=== PATIENT | female | born 1990 | race Caucasian/White ===

== ENCOUNTER 2020-04-18 17:00 | Outpatient (REF) | payer OTHER, SELFPAY ==
[2020-04-18 18:04] LABS: MANUAL DIFF FLAG NO
[2020-04-18 18:07] LABS: Basophils Percent Auto 0.1 % (0-2); Eosinophils Percent Auto 0.4 % (0-4); Hematocrit 40.8 % (37-47); Hemoglobin 12.4 g/dl (12.0-16.0); Imm Gran Abs Auto 0.02 X10*3/uL (0.00-0.03); Imm Gran Pct Auto 0.3 % (0.0-0.4); Lymphocytes Absolute Auto 1.8 X10*3/uL (1.2-4.9); Lymphocytes Percent Auto 26.5 % (20-40); Mean Corpuscular HGB Conc 30.4 g/dl (31.0-35.0); Mean Corpuscular Volume 82.3 fL (80-98); Mean Platelet Volume 9.5 fL (9.4-12.3); Monocytes Absolute Auto 0.4 X10*3/uL (0.1-1.2); Monocytes Percent Auto 6.5 % (2-11); Neutrophils Absolute Auto 4.5 X10*3/uL (2.0-8.3); Neutrophils Percent Auto 66.2 % (45-73); Platelet Count 296 X10*3/uL (160-400); Red Blood Count 4.96 X10*6/uL (4.20-5.50); Red Cell Distribution Width 13.1 % (11.0-16.0); White Blood Count 6.8 X10*3/uL (4.8-10.8)
[2020-04-18 18:35] LABS: Alanine Aminotransferase 15 U/L (0-31); Albumin Level 4.6 g/dL (3.5-5.0); Alkaline Phosphatase 77 U/L (39-117); Anion Gap 10 (12-20); Aspartate Amino Transferase 16 U/L (5-31); Bilirubin Total 0.3 mg/dL (0.0-1.0); Blood Urea Nitrogen 11 mg/dL (9-16); Calcium 8.8 mg/dL (8.4-10.2); Carbon Dioxide 26 mmol/L (22-29); Chloride 105 mmol/L (96-108); Cholesterol 175 mg/dL; Estimated Glomerular Filt Rate > 60; Glucose Random 84 mg/dL (60-115); Potassium 4.1 mmol/l (3.3-5.1); Sodium 137 mmol/L (135-145); Total Protein 7.8 g/dL (6.5-8.0)
[2020-04-18 18:56] LABS: Vitamin B12 446 pg/mL (200-900)
[2020-04-18 18:59] LABS: Free T4 (Free Thyroxine) 0.91 ng/dL (0.71-1.85); Thyroid Stimulating Hormone 0.67 uIU/mL (0.32-4.0); Vitamin D 25-OH Total 11.4 ng/mL (>30)
== END 2020-04-18 17:01 | disposition home or self-care (01) ==
LOC: HO.LAB 17:00
PROVIDERS: PCP Internal Medicine; Visit Provider Internal Medicine
DX: R53.83 Other fatigue (principal); J45.909 Unspecified asthma, uncomplicated; R63.5 Abnormal weight gain
CPT/HCPCS: 36415; 80053; 82306; 82465; 82607; 84439; 84443; 85025

== ENCOUNTER → 2020-05-11 16:03 | Outpatient (BNVA) | payer OTHER, SELFPAY | PROVIDERS: Visit Provider Obstetrics & Gynecology | DX: Z76.89 Persons encountering health services in other specified circumstances (principal) ==

== ENCOUNTER → 2022-10-20 11:13 | Outpatient (BNVA) | payer OTHER, SELFPAY | PROVIDERS: Visit Provider Advanced Practice Midwife | DX: Z30.431 Encounter for routine checking of intrauterine contraceptive device (principal) | CPT/HCPCS: 99212 ==

== ENCOUNTER 2022-11-12 08:04 | Emergency (ER) | payer OTHER, SELFPAY ==
[2022-11-12 08:28] VITALS: BP 130/87; PULSE 84; RESP 16; TEMP 37.1; O2SAT 96; BMI 37.1
[2022-11-12] MEDS: Ibuprofen 600 MG TABLET PO (08:51)
[2022-11-12] MEDS: dexAMETHasone 2 MG TABLET 10 MG PO (08:51)
--- NOTE | 2022-11-12 09:39 | ED_ITS ---
HPI - General Adult General Chief complaint: Upper Respiratory Symptoms Stated complaint: ? swollen tonsils, chills, fever Time Seen by Provider: 11/12/22 08:06 Source: patient Mode of arrival: ambulatory Limitations: no limitations History of Present Illness HPI narrative: Female with no major medical problems presents with sore throat. Symptoms started 3 days ago. Symptoms are moderate to severe. They are worse with swallowing. She has no fevers but chills. She denies any cough or mucus production. She denies any shortness of breath. She denies any sick contacts. Prior treatment include ampicillin this morning. Related Data Home Medications Medication Instructions Recorded Confirmed copper 380 square mm intrauterine intrauterine 10/20/22 device (ParaGard T 380A) Previous Rx's Medication Instructions Recorded amoxicillin 875 mg tablet 875 mg PO BID #20 tabs 11/12/22 Allergies Allergy/AdvReac Type Severity Reaction Status Date / Time kiwi [KIWI] Allergy Unknown UNKNOWN Verified 10/20/22 11:17 oregano [OREGANO] Allergy Unknown UNKNOWN Verified 10/20/22 11:17 Review of Systems Review of Systems: CONSTITUTIONAL: Denies weight loss, fever and chills. HEENT: Denies changes in vision and hearing. RESPIRATORY: Denies SOB and cough. CV: Denies palpitations no CP. GI: Denies abdominal pain, nausea, vomiting and diarrhea. : Denies dysuria and urinary frequency. MSK: Denies myalgia and joint pain. SKIN: Denies rash and pruritus. NEUROLOGICAL: Denies headache and syncope. PSYCHIATRIC: Denies recent changes in mood. Denies anxiety and depression. All other ROS are negative unless in HPI [facility] Past Medical History Medical History Asthma Social History Social History Alcohol intake: current Alcohol intake frequency: holidays/special occasions only Patient Tobacco Use Status: Current everyday Tobacco user Cigarettes Per Day: 3 Advance Directives: No Sexual orientation: Straight/Heterosexual Gender identity: Female Physical Exam ED Vital Signs: Vital Signs - 24 hr 11/12/22 08:28 Temperature 98.8 F Pulse Rate 84 Respiratory Rate 16 Blood Pressure 130/87 Pulse Oximetry 96 Oxygen Delivery Method Room Air BMI result Body Mass Index 37.1 GEN: Well developed, no acute distress, alert, oriented HEENT: Normocephalic, atraumatic, normal external ears, nose appears normal, tonsillar enlargement bilaterally, no exudates, erythematous changes, no uvular deviation or evidence of HEALTH 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 COORDINATOR Eyes: Normal to appearance Neck: Supple, no lymphadenopathy Respiratory: Talks in complete sentences, no respiratory distress, clear to auscultation bilaterally Cardiovascular: Regular rate and rhythm, no murmurs rubs or gallops Abdomen: Soft, nontender, nondistended, no guarding, no rebound Back: No CVA tenderness Extremities: No clubbing cyanosis or edema Neurologic: No focal neurologic deficits, cranial nerves 2-12 intact, strength is 5/5 bilaterally Skin: No rash Medications Administered Discontinued Medications Generic Name Dose Route Start Last Admin Trade Name Kinjal PRN Reason Stop Dose Admin Dexamethasone 10 mg 11/12/22 08:21 11/12/22 08:51 Dexamethasone 2 Mg Tablet PO 11/12/22 08:22 10 mg ONCE ONE Administration Ibuprofen 600 mg 11/12/22 08:21 11/12/22 08:51 Ibuprofen 600 Mg Tablet PO 11/12/22 08:22 600 mg ONCE ONE Administration Medical Decision Making Medical Decision Making MDM Narrative: 32-year-old female presents with sore throat. She has no other symptoms at this time. Her examination is most consistent with acute streptococcal pharyngitis. Based on Centor criteria, will patient patient on antibiotics. Follow up as needed. She will receive a dose of dexamethasone this morning to help with her inflammation. Differential Diagnosis Differential Diagnoses: The differential diagnosis associated with the presentation includes (Strep pharyngitis, viral pharyngitis) Prescription Management I considered prescription management with: Antibiotic Discharge Plan Discharge Clinical Impression: Acute pharyngitis Patient Disposition: Home, Self-Care Instructions: Pharyngitis (ED) Prescriptions: New amoxicillin 875 mg tablet 875 mg PO BID Qty: 20 0RF No Action ParaGard T 380A 380 square mm intrauterine device intrauterine Referrals: Physician,None [Primary Care Provider] - Stand Alone Forms: Work/School Release Interventions: ED Discharge Assessment Last Done: 11/12/22 08:55 Discharge Date/Time: 11/12/22 08:56
== END 2022-11-12 08:56 | disposition home or self-care (01) ==
LOC: HO.ED 08:31
PROVIDERS: Emergency Provider Emergency Medicine
DX: J02.9 Acute pharyngitis, unspecified (principal)
CPT/HCPCS: 99283; J8540

== ENCOUNTER → 2022-11-21 07:52 | Outpatient (BNVA) | payer OTHER, SELFPAY | PROVIDERS: Visit Provider Advanced Practice Midwife | DX: Z30.432 Encounter for removal of intrauterine contraceptive device (principal); Z30.017 Encounter for initial prescription of implantable subdermal contraceptive | CPT/HCPCS: 11981; 58301; 81025; J7307 ==

== ENCOUNTER 2022-12-30 15:21 | Outpatient (REF) | payer OTHER, SELFPAY | END 2022-12-30 15:22 | disposition home or self-care (01) | LOC: HO.LAB 15:21 | PROVIDERS: Visit Provider Advanced Practice Midwife | DX: Z13.89 Encounter for screening for other disorder (principal) ==

== ENCOUNTER 2022-12-30 15:21 | Outpatient (AMB) | payer OTHER, SELFPAY ==
--- NOTE | 2022-12-30 15:23 | A.OFFVIS_ITS ---
Intake Vital Signs 12/30/22 15:24 Height 5 ft 6 in Weight 216 lb BMI 34.9 BP 118/70 Intake Visit Reasons: Annual/Nexplanon follow up Intake Note: The patient agreed to use of a biomedical equipment support specialist during this encounter. Scribed for AGATHA Langston by Larissa Davis biomedical equipment support specialist, on 12/30/2022 at 3:54 pm EST. Painter Plate: Painter Plate Present (Kelsey) Allergies kiwi [KIWI] Allergy (Unknown, Verified 12/30/22 15:24) UNKNOWN oregano [OREGANO] Allergy (Unknown, Verified 12/30/22 15:24) UNKNOWN Is last menstrual period known: Yes Last menstrual period: 12/15/22 HPI HPI Comments History of Present Illness Details She is a premenopausal woman presenting for annual exam and Nexplanon check. Nexplanon implanted 11/21/22. Reports itching at implant site. She admits to eating healthy and tries to stay active with exercise. Currently not sexually active. Admits vaginal irritation. STD testing and blood work offered; she accepts. Denies family hx of breast, colon and ovarian cancer. Last pap smear 02/26/18. Reports she quit smoking. [facility] Medical History Asthma Insertion of Nexplanon Vaginal irritation Social History Household Members Other:: partner, MGM, and her 4 children Alcohol intake: current Alcohol intake frequency: holidays/special occasions only Patient Tobacco Use Status: Former Tobacco user Cigarettes Per Day: 3 Current occupational status: employed Current occupation: [employer] Sexual orientation: Straight/Heterosexual Gender identity: Female Female Reproductive History Menstrual Date of last menstrual period: 12/15/22 control method: implanted (Nexplanon 11/21/22) Total pregnancies: 7 Full term: 4 Number of Living Children: 4 Ab spontaneous: 3 Date of last pap smear: 02/26/18 (neg) History of STI: Yes (hsv,gc/ct) Physical Exam Vital Signs: Last Vital Signs BP 118/70 12/30/22 15:24 BMI result Body Mass Index 34.9 Const General: cooperative, healthy appearing, no acute distress, well developed and alert Orientation/consciousness: patient oriented x3 HEENT Head: Yes normal to inspection Eyes General: appearance normal, both eyes and all related structures Neck Neck: Yes normal visual inspection Thyroid: Thyroid normal Chest Chest palpation & inspection: normal inspection of the chest Breast/axilla inspection: normal inspection of the breasts (no puckering, dimpling, peau de orange, retraction, discharge, masses) Breast/axilla palpation: normal palpation of the breasts Resp Effort & Inspection: normal respiratory effort GI Inspection: Yes normal to inspection Palpation (GI): Soft to palpation (to palpation) Rectal Exam - Female: deferred General: Yes bladder normal to inspection External Female Exam: normal external appearance and normal appearance of the urethra Speculum Exam - Vagina: normal appearance of the vagina, normal palpation and normal vaginal discharge Speculum Exam - Cervix: normal appearance of the cervix and normal palpation Bimanual exam- vagina & uterus: normal palpation and normal palpation Bimanual Exam- Adnexa, other: normal adnexae and no masses Skin General skin exam: no rashes or lesions noted Neuro General: patient oriented x3 Cognition (Neuro): normal cognition Extrem Other: Nexplanon inserted in left upper arm, well healed, non tender General: Yes normal to inspection Psych Attitude: cooperative Thought process: Normal thought process present Assessment & Plan Assessment & Plan (1) Encounter for well woman exam: Code(s): Z01.419 - Encounter for gynecological examination (general) (routine) without abnormal findings Plan: Discussed: Current recommendations for pap smears per ASCCP guidelines Breast awareness and periodic self breast exams. Maintaining a healthy lifestyle including a well balanced diet and routine exercise. BV testing and GC/CT panel today. STD blood work ordered. Await results and treat accordingly. Instructed to always use condoms for STD prevention. Encouraged patient to sign up for patient portal. All of her questions and concerns were addressed to the best of my ability. RTO in one year for AG. (2) Encounter for surveillance of Nexplanon subdermal contraceptive: Code(s): Z30.46 - Encounter for surveillance of implantable subdermal contraceptive (3) Vaginal irritation: Code(s): N89.8 - Other specified noninflammatory disorders of vagina Orders: Orders Bacterial Vaginosis Panel Today N89.8 - Other specified noninflammatory disorders of vagina CT NG by PCR Today N89.8 - Other specified noninflammatory disorders of vagina, Z20.2 - Contact with and (suspected) exposure to infections with a predominantly sexual mode of transmission Hepatitis B Core Antibody Today Z20.2 - Contact with and (suspected) exposure to infections with a predominantly sexual mode of transmission Hepatitis C Antibody Today Z20.2 - Contact with and (suspected) exposure to infections with a predominantly sexual mode of transmission HIV Ab/Ag Today Z20.2 - Contact with and (suspected) exposure to infections with a predominantly sexual mode of transmission Syphilis Screen Today Z20.2 - Contact with and (suspected) exposure to infections with a predominantly sexual mode of transmission Pap Smear Today Z01.419 - Encounter for gynecological examination (general) (routine) without abnormal findings Coding Level of Care Code Est Pt Prev Care [id number]([id number]) Diagnoses Encounter for well woman exam Z01.419 Encounter for surveillance of Nexplanon subdermal contraceptive Z30.46 Vaginal irritation N89.8
[2022-12-30 15:24] VITALS: BP 118/70; BMI 34.9
== END 2022-12-31 08:25 | disposition home or self-care (01) ==
PROVIDERS: Visit Provider Advanced Practice Midwife
DX: Z01.419 Encounter for gynecological examination (general) (routine) without abnormal findings (principal); N89.8 Other specified noninflammatory disorders of vagina
CPT/HCPCS: 99395

== ENCOUNTER 2022-12-30 16:03 | Outpatient (REF) | payer OTHER, SELFPAY ==
[2023-01-06 06:34] LABS: HPV mRNA E6/E7 rflx Not Detected (Not Detected)
== END 2022-12-30 16:04 | disposition home or self-care (01) ==
LOC: HO.LNP 16:03
PROVIDERS: Visit Provider Advanced Practice Midwife
DX: N89.8 Other specified noninflammatory disorders of vagina (principal); Z20.2 Contact with and (suspected) exposure to infections with a predominantly sexual mode of transmission
CPT/HCPCS: 87624; 88142

== ENCOUNTER 2022-12-30 16:26 | Outpatient (REF) | payer OTHER, SELFPAY ==
[2022-12-31 04:14] LABS: Syphilis Screen Nonreactive (Nonreactive)
[2022-12-31 04:34] LABS: HBc Num1 0.07 S/CO (0.00-0.79); HIV AB/AG Nonreactive (Nonreactive); HIV Num 1 0.06 S/CO (0.00-0.99); Hepatitis B Core Antibody Nonreactive (Nonreactive); ~HepC Num1 0.14 S/CO (0.00-0.79); ~Hepatitis C Antibody Nonreactive (Nonreactive)
[2022-12-31 15:34] LABS: BV Int Neg Control Negative (Negative); BV Int Pos Control Positive (Positive)
[2023-01-01 12:38] LABS: CT PCR NOT DETECTED (Not Detect.); NG PCR NOT DETECTED (Not Detect.)
== END 2022-12-30 16:27 | disposition home or self-care (01) ==
LOC: HO.LAB 16:26
PROVIDERS: Visit Provider Advanced Practice Midwife
DX: Z20.2 Contact with and (suspected) exposure to infections with a predominantly sexual mode of transmission (principal); N89.8 Other specified noninflammatory disorders of vagina
CPT/HCPCS: 0353U; 86704; 86780; 86803; 87389; 87480; 87510; 87660

== ENCOUNTER 2023-01-27 09:06 | Emergency (ER) | payer OTHER, SELFPAY ==
--- NOTE | ~2023-01-27 | XR_ITS ---
EXAMINATION: XR SHOULDER, LEFT CLINICAL INFORMATION: Left shoulder pain. COMPARISON: None available. TECHNIQUE: AP external rotation, Grashey, scapular Y, and axillary views of the left shoulder. FINDINGS: The bones and soft tissues are normal. No fracture. Glenohumeral and acromioclavicular alignment is anatomic with normal joint space. No abnormal soft tissue calcifications. XR/XR shoulder LT min 2V IMPRESSION: Unremarkable left shoulder.
[2023-01-27 09:08] VITALS: BP 128/62; PULSE 98; RESP 16; TEMP 36.8; O2SAT 98; BMI 34.7
--- NOTE | 2023-01-27 09:47 | ED.EXTPRO ---
HPI - Extremity Problem General Chief complaint: Extremity Injury, Upper Stated complaint: L shoulder pain/arm tingling Time Seen by Provider: 01/27/23 09:20 Source: patient and RN notes reviewed Mode of arrival: ambulatory Limitations: no limitations History of Present Illness HPI Narrative: This is a 32-year-old female, no known past medical history, presenting to the emergency department for evaluation of left shoulder and left upper back pain x1 year. Patient states that 1 year ago she was taking off a tight shirt and when she was pulling this your above her head she felt a popping sensation in her left shoulder and left upper back. She was seen at a hospital in [place] where she was given a sling. She states that she did not use the sling. She reports that since this injury she has had ongoing shoulder pain. She reports that she has been told that she has multiple muscle spasms in her back so she decided to take the initiative and to go to the gym to loosen up her muscles. She states that her symptoms have improved since going to the gym however notes that when she performs overhead shoulder press exercises she cannot do these for prolonged periods of time because of the pain and slight weakness into her shoulder. She states that periodically she will take ibuprofen or Tylenol as needed which provides her with some relief. She denies any fevers, chills, chest pain, shortness of breath. No other complaints or concerns at this time. MD Complaint: extremity pain Pain Consistency: constant Location: left and upper extremity Quality: aching and sharp Radiation: distal Relieving factors: nothing Exacerbating factors: nothing Associated symptoms: denies other symptoms Related Data Home Medications Medication Instructions Recorded Confirmed etonogestrel 68 mg subdermal subdermal 11/21/22 implant (Nexplanon) Previous Rx's Medication Instructions Recorded cyclobenzaprine 5 mg tablet 5 mg PO TID PRN muscle spasm #15 01/27/23 tabs ibuprofen 600 mg tablet 600 mg PO Q6H PRN pain #45 tabs 01/27/23 Allergies Allergy/AdvReac Type Severity Reaction Status Date / Time kiwi [KIWI] Allergy Unknown UNKNOWN Verified 12/30/22 15:24 oregano [OREGANO] Allergy Unknown UNKNOWN Verified 12/30/22 15:24 Review of Systems Review of Systems: Yes all other systems are reviewed and are negative Constitutional: Constitutional: Reports as per HPI [facility] Past Medical History Medical History Asthma Insertion of Nexplanon Vaginal irritation Social History Social History Household Members Other:: partner, MGM, and her 4 children Alcohol intake: current Alcohol intake frequency: does not drink Patient Tobacco Use Status: Former Tobacco user Cigarettes Per Day: 3 Smoked in Last 30 Days: No Use of substances other than those prescribed or required for medical reasons: No Advance Directives: No Advance Directives Information Provided: Yes Current occupational status: employed Current occupation: [employer] Sexual orientation: Straight/Heterosexual Gender identity: Female Physical Exam Vital Signs: Vital Signs: Last Vital Signs Temp 98.2 F 01/27/23 09:08 Pulse 98 01/27/23 09:08 Resp 16 01/27/23 09:08 BP 128/62 01/27/23 09:08 Pulse Ox 98 01/27/23 09:08 O2 Del Method Room Air 01/27/23 09:08 BMI result Body Mass Index 34.7 Const: General: cooperative, comfortable and no acute distress Orientation/consciousness: patient oriented x3 Limitations: no limitations HEENT: Head: Yes normal to inspection, Yes normocephalic and Yes atraumatic Ears: hearing grossly normal bilaterally General nose exam: Normal external nose present Face and sinus: Yes normal facial exam Mouth: Normal oral and palatal mucosa present, oropharynx normal and moist mucous membranes Throat: Yes posterior oropharynx normal Eyes: General: appearance normal, both eyes and all related structures Eyelids: Yes eyelids normal Conjunctivae: conjunctivae normal Sclerae: sclerae normal Pupils: Equal, round and reactive pupils present EOM: EOMs intact bilaterally Neck: Neck: Yes normal visual inspection, Yes full ROM and Yes no lymphadenopathy Lymphatic: no lymphadenopathy noted Chest: Chest palpation & inspection: normal inspection of the chest Resp: Effort & Inspection: normal respiratory effort and able to speak in complete sentences Auscultation: clear to auscultation bilaterally, no crackles, no rales, no rhonchi and no wheezes Cardio: Rate: regular rate Rhythm: regular rhythm Heart sounds: S1 normal heart sound present and S2 normal heart sound present GI: Inspection: Yes normal to inspection Back/Spine/Pelvis: Other: Left shoulder is nontender diffusely, range of motion is full and intact. Negative lift-off test, negative empty can test. Tenderness to palpation along the left trapezius/shoulder blade. Left shoulder is diffusely nontender, patient has point tenderness palpation along the left thoracic paraspinous muscle, overlying the left trapezius Skin: General skin exam: no rashes or lesions noted Trauma: no lacerations or abrasions Wounds: no wounds Neuro: General: patient oriented x3 and moves all extremities Cranial nerves: Yes Equal, round and reactive pupils present Extrem: General: Yes normal to inspection Right upper extremity: normal to inspection Left upper extremity: normal to inspection Right lower extremity: normal to inspection Left lower extremity: normal to inspection Course Reevaluation(s) Reevaluation #1: xray unremarkable. d/c on ibuprofen and muscle relaxants. Given return precautions. Pt stable for d/c. Medications Administered Discontinued Medications Generic Name Dose Route Start Last Admin Trade Name Freq PRN Reason Stop Dose Admin Ibuprofen 600 mg 01/27/23 10:04 01/27/23 10:07 Ibuprofen 600 Mg Tablet PO 01/27/23 10:05 600 mg ONCE ONE Administration Medical Decision Making Medical Decision Making MDM Narrative: 32-year-old female presenting to the emergency department for evaluation of left shoulder and left shoulder blade pain x1 year. Left shoulder is diffusely nontender, patient has point tenderness palpation along the left thoracic paraspinous muscle, overlying the left trapezius. X-rays were obtained for further evaluation. Differential diagnoses include trapezius muscle spasm versus strain, left AC joint separation, arthritis. Patient has no chest pain or shortness of breath, and symptoms have been ongoing for the last year, pain worsening with movement, patient has no risk factors, therefore ACS is unlikely. Patient medicated with 600 mg of ibuprofen. Differential Diagnosis Differential Diagnoses: The differential diagnosis associated with the presentation includes See above Independent Interpretation I performed an independent interpretation of an: Plain X-Ray Radiology Impression Radiologist Impression: EXAMINATION: XR SHOULDER, LEFT CLINICAL INFORMATION: Left shoulder pain.? COMPARISON: None available.? TECHNIQUE: AP external rotation, Grashey, scapular Y, and axillary views of the left shoulder. FINDINGS: The bones and soft tissues are normal. No fracture. Glenohumeral and acromioclavicular alignment is anatomic with normal joint space. No abnormal soft tissue calcifications.? XR/XR shoulder LT min 2V IMPRESSION: Unremarkable left shoulder. Dictated By: Yobani Christian MD Discharge Plan Discharge Clinical Impression: Trapezius muscle spasm Patient Disposition: Home, Self-Care Instructions: Muscle Spasm (ED) Additional Instructions: Your x-ray of your left shoulder was unremarkable. Please take prescribed ibuprofen and muscle relaxants as needed for your pain and symptoms. Please be aware that muscle relaxants can cause drowsiness, do not drink alcohol or drive while taking this medication. Gentle stretching, massage, heat or ice, can also help with her symptoms. Follow-up with orthopedics as needed, they may be able to help refer he to physical therapy. Follow-up with primary care physician for further evaluation. If any new or worsening symptoms occur including but not limited to chest pain, shortness of breath, please return to the emergency department for further evaluation. Prescriptions: New ibuprofen 600 mg tablet 600 mg PO Q6H PRN (Reason: pain) Qty: 45 0RF cyclobenzaprine 5 mg tablet 5 mg PO TID PRN (Reason: muscle spasm) Qty: 15 0RF No Action Nexplanon 68 mg implant subdermal Referrals: [facility] [Provider Group] Interventions: ED Discharge Assessment Last Done: 01/27/23 10:45 Discharge Date/Time: 01/27/23 10:59
[2023-01-27] MEDS: Ibuprofen 600 MG TABLET PO (10:07)
== END 2023-01-27 10:59 | disposition home or self-care (01) ==
PROVIDERS: Emergency Provider Student in an Organized Health Care Education/Training Program
DX: M62.838 Other muscle spasm (principal); M25.512 Pain in left shoulder
CPT/HCPCS: 73030; 99283; 99284

== ENCOUNTER 2023-04-03 16:14 | Emergency (ER) | payer MEDICAID, SELFPAY ==
[2023-04-03 16:33] VITALS: BP 148/88; PULSE 103; RESP 18; TEMP 36.8; O2SAT 98; BMI 34.7
--- NOTE | 2023-04-03 16:34 | ED.GENADULT ---
HPI - General Adult General Chief complaint: Urogenital-Female Stated complaint: UTI Time Seen by Provider: 04/03/23 19:25 Source: patient Mode of arrival: ambulatory Limitations: no limitations History of Present Illness HPI narrative: Patient is a 32 year old assigned female at with no reported medical history presenting to the emergency department today with pain with urination and concern of STI exposure. Patient states that over the last week she has had pain with urination and has had intercourse recently. Patient denies any dizziness, lightheadedness, abdominal pain, nausea, vomiting, fever, chills, blurry vision, double vision, loss of vision, chest pain, difficulty breathing, shortness of breath, back pain, night sweats, blood in her urine or stool, syncope or a near syncopal episode, recent trauma or falls, bowel incontinence, bladder incontinence, bowel retention, bladder retention, or any other complaints at this time. Onset (ago): week(s) (1) Severity: mild Severity scale (1-10): 3 Relieving factors: none Exacerbating factors: none Associated symptoms: denies other symptoms Treatments prior to arrival: none Related Data Home Medications Medication Instructions Recorded Confirmed etonogestrel 68 mg subdermal subdermal 11/21/22 implant (Nexplanon) Previous Rx's Medication Instructions Recorded cyclobenzaprine 5 mg tablet 5 mg PO TID PRN muscle spasm #15 01/27/23 tabs ibuprofen 600 mg tablet 600 mg PO Q6H PRN pain #45 tabs 01/27/23 doxycycline hyclate 100 mg tablet 100 mg PO BID 7 days #14 tabs 04/03/23 nitrofurantoin 100 mg PO BID 5 days #10 caps 04/08/23 monohydrate/macrocrystals 100 mg capsule (Macrobid) Allergies Allergy/AdvReac Type Severity Reaction Status Date / Time kiwi [KIWI] Allergy Unknown UNKNOWN Verified 04/03/23 16:37 oregano [OREGANO] Allergy Unknown UNKNOWN Verified 04/03/23 16:37 Review of Systems Constitutional: Constitutional: Reports no additional constitutional complaints, Denies chills, Denies fever(s) and Denies night sweats Eyes: Eyes: Reports no additional eye complaints, Denies blurry vision, Denies change in vision, Denies diplopia, Denies eye discharge, Denies loss of vision and Denies eye pain ENT: Denies dizziness Cardiovascular: Cardiovascular: Reports no additional cardiovascular complaints, Denies chest pain, Denies lightheadedness, Denies Loss of Consciousness and Denies dyspnea Respiratory: Respiratory: Reports no additional respiratory complaints and Denies dyspnea Gastrointestinal: Gastrointestinal: Reports no additional gastrointestinal complaints, Denies abdominal pain, Denies melena, Denies hematochezia, Denies change in bowel habits and Denies change in stool character Genitourinary: Genitourinary: Denies hematuria, Denies urinary frequency, Reports dysuria, Denies urinary incontinence, Denies urinary hesitancy and Reports urinary urgency Musculoskeletal: Musculoskeletal: Reports no additional musculoskeletal complaints, Denies numbness and Denies tingling Neurologic: Denies dizziness, Denies loss of vision, Denies numbness and Denies tingling Psychiatric: Psychiatric: Reports no additional psychiatric complaints Endocrine: Endocrine: Reports no additional endocrine complaints Hematologic/Lymphatic: Hematologic/Lymphatic: Reports no additional hematologic/lymphatic complaints Allergic/Immunologic: Allergic/Immunologic: Reports no additional allergic/immunologic complaints PMFSH Past Medical History Attestation statement: The following information was validated with the patient. Source: old records reviewed and nursing notes reviewed Medical History Vaginal irritation Encounter for surveillance of Nexplanon subdermal contraceptive Encounter for well woman exam Insertion of Nexplanon Asthma Social History Social History Household Members Other:: partner, MGM, and her 4 children Alcohol intake: current Alcohol intake frequency: does not drink Patient Tobacco Use Status: Former Tobacco user Cigarettes Per Day: 3 Smoked in Last 30 Days: No Use of substances other than those prescribed or required for medical reasons: No Advance Directives: No Advance Directives Information Provided: No Patient : No Current occupational status: employed 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 Sexual orientation: Straight/Heterosexual Gender identity: Female Physical Exam ED Vital Signs: Vital Signs - 24 hr 04/03/23 16:33 04/03/23 19:31 04/03/23 19:55 Temperature 98.2 F Pulse Rate 103 H 55 Respiratory Rate 18 19 Blood Pressure 148/88 H 96/51 L 115/68 Pulse Oximetry 98 96 Oxygen Delivery Method Room Air Room Air 04/03/23 20:08 Temperature Pulse Rate 75 Respiratory Rate 17 Blood Pressure 132/77 Pulse Oximetry 100 Oxygen Delivery Method Room Air BMI result Body Mass Index 34.7 Const General: cooperative, no acute distress, alert and awake Nutritional Appearance: well nourished Orientation/consciousness: patient oriented x3 Limitations: no limitations HENMT Head: Yes normal to inspection and Yes atraumatic Ears: hearing grossly normal bilaterally and external ears normal General nose exam: Normal external nose present, no nasal discharge noted and no epistaxis Face and sinus: Yes normal facial exam, No abrasion and No laceration Mouth: Normal oral and palatal mucosa present, no drooling and no muffled voice Eyes General: appearance normal, both eyes and all related structures Periorbital: periorbital findings normal Eyelids: Yes eyelids normal Conjunctivae: conjunctivae normal Pupils: Equal, round and reactive pupils present EOM: EOMs intact bilaterally Neck Neck: Yes normal visual inspection, Yes full ROM and Yes no lymphadenopathy Chest Chest palpation & inspection: normal inspection of the chest Resp Effort & Inspection: normal respiratory effort and able to speak in complete sentences GI Inspection: Yes normal to inspection Neuro General: patient oriented x3 and moves all extremities Cranial nerves: Yes Equal, round and reactive pupils present Cognition (Neuro): normal cognition Motor exam (neuro): 5/5 motor strength present throughout Sensory Exam: Normal double simultaneous stimulation for sensation Coordination: [id number] test normal Extrem General: Yes normal to inspection, Yes full ROM and Yes capillary refill normal Psych Appearance: grossly normal Mental Status: mental status grossly normal Affect: normal affect Attitude: cooperative Thought process: Normal thought process present Thought content: Normal thought content present Insight: Good insight present (Psych) Course Course Course Narrative: This is a rapid medical exam: Additional HPI, ROS, PE not included below will be deferred to primary provider. Patient is a 32-year-old female presenting to the emergency department with complaint of urinary urgency and pressure, as well as urinating small amounts for the past week. States has been using OTC yeast infection treatment without change in symptoms. Denies any abnormal vaginal discharge. Does express concern for possible STI. Plan: UA, hcg Reevaluation(s) Reevaluation #1: Called patient to discuss results of + staphylococcus saprophyticus shows resistance to penicillin recommend stopping ceftin and starting macrobid. Macrobid sent to the pharmacy. Left general voice mail for call back. Time: 08:53 Medications Administered Discontinued Medications Generic Name Dose Route Start Last Admin Trade Name Kinjal PRN Reason Stop Dose Admin Ceftriaxone Sodium 500 mg/ 0 mg 04/03/23 19:39 04/03/23 19:56 Lidocaine HCl 1 ml IM 04/03/23 19:40 350 kit ONCE ONE Administration Doxycycline Monohydrate 100 mg 04/03/23 19:39 04/03/23 19:56 Doxycycline Monohydrate 100 Mg Capsule PO 04/03/23 19:40 100 mg ONCE ONE Administration Medical Decision Making Medical Decision Making [facility] Narrative: Patient is a 32 year old assigned female at with no reported medical history presenting to the emergency department today with painful urination. Patient's physical exam was unremarkable. Patient's urine showed an acute infection. I explained my physical exam findings as well as all test results to the patient. I answered all questions asked by the patient. Patient given IM Ceftriaxone and first dose of Doxycycline while in the department. I stressed the importance of the patient taking her medication as prescribed. I stressed the importance of the patient following up with her primary care provider. I stressed the importance of the patient returning to the emergency department immediately if her symptoms were to worsen or if she were to develop any dizziness, shortness of breath, difficulty breathing, chest pain, blurry vision, loss of vision, nausea, vomiting, abdominal pain, fever, chills, back pain, or any other complaints. Patient verbalized agreement and understanding with this treatment plan and discharge. Differential Diagnosis Differential Diagnoses: The differential diagnosis associated with the presentation includes UTI STI Lab Data [facility] Lab Attestation statement: I reviewed the patient's lab results. My interpretation of these results are in the [facility] Rationale of this note. Labs: Lab Results 04/03/23 04/03/23 Range/Units 19:16 19:17 Urine Color Dark Yellow Urine Appearance Cloudy Urine pH 7.0 (5.0-9.0) Ur Specific [place] >= 1.030 H (1.005-1.025) Urine Protein 100 (2+) H (Neg-Trace) mg/dL Urine Glucose (UA) Negative (Negative) mg/dL Urine Ketones Trace (Negative) mg/dL Urine Blood Small (1+) H (Negative) Urine Nitrite Negative (Negative) Ur Leukocyte Esterase Small (1+) H (Negative) Urine RBC 11-20 H (0-2) /HPF Urine WBC >50 H (0-5) /HPF Ur Squamous Epith Cells 6-10 (0-2) /HPF Urine Bacteria 4+ (None Seen) Hyaline Casts 3-5 (0-2) /LPF Urine Test NEGATIVE (NEGATIVE) Prescription Management I considered prescription management with: Antibiotic (patient prescribed an antibiotic for her UTI and STI exposure. ) Discharge Plan Discharge Clinical Impression: Urinary tract infection, Possible exposure to STD Patient Disposition: Home, Self-Care Instructions: Urinary Tract Infection in Women (DC) Additional Instructions: Follow up with your primary care provider. Return to the emergency department immediately if your symptoms worsen or if you develop any dizziness, shortness of breath, difficulty breathing, chest pain, blurry vision, loss of vision, nausea, vomiting, abdominal pain, fever, chills, back pain, or any other complaints. Prescriptions: New doxycycline hyclate 100 mg tablet 100 mg PO BID 7 Days Qty: 14 0RF nitrofurantoin monohyd/m-cryst [Macrobid] 100 mg capsule 100 mg PO BID 5 Days Qty: 10 0RF Rx Instructions: must administer with a meal/food No Action ibuprofen 600 mg tablet 600 mg PO Q6H PRN (Reason: pain) Qty: 45 0RF cyclobenzaprine 5 mg tablet 5 mg PO TID PRN (Reason: muscle spasm) Qty: 15 0RF Nexplanon 68 mg implant subdermal Referrals: [facility] [place] [facility] [place]] (Call to establish and follow up with a primary care provider. If you already have a primary care provider, please follow up with them.) [facility] [place] [facility] [Provider Group] (Call to establish and follow up with a primary care provider. If you already have a primary care provider, please follow up with them.) [facility] [place] [facility] [Provider Group] (Call to establish and follow up with a primary care provider. If you already have a primary care provider, please follow up with them.) Stand Alone Forms: Work/School Release Interventions: ED Discharge Assessment Last Done: 04/03/23 20:05 Discharge Date/Time: 04/03/23 20:11 Print Language: Hebrew
[2023-04-03 19:24] LABS: Appearance Urine Cloudy; Color Urine Dark Yellow; Glucose Urine UA Negative (Negative); Leukocyte Esterase Urine Small (1+) (Negative); Nitrite Urine Negative (Negative); Specific Gravity - Urine >= 1.030 (1.005-1.025); UMIC TRIGGER UACC YES; Urine Blood Small (1+) (Negative); Urine Ketones Trace mg/dL (Negative); Urine Protein 100 (2+) mg/dL (Neg-Trace)
[2023-04-03 19:25] LABS: UPreg QC Valid YES; Urine Pregnancy NEGATIVE (NEGATIVE)
[2023-04-03 19:29] LABS: Bacteria Urine 4+ (None Seen); UACC Culture Trigger YES; WBC Urine >50 /HPF (0-5)
[2023-04-03 19:31] VITALS: BP 96/51; PULSE 55; RESP 19; O2SAT 96
[2023-04-03 19:55] VITALS: BP 115/68
[2023-04-03] MEDS: cefTRIAXone sodium 500 MG, Lidocaine HCl 1 % MPF 1 ML IM (19:56)
[2023-04-03] MEDS: Doxycycline Monohydrate 100 MG CAPSULE PO (19:56)
--- NOTE | 2023-04-03 20:04 | PC.NURSE ---
Medication given per MAR, pt resting quietly and aware of plan.
[2023-04-03 20:08] VITALS: BP 132/77; PULSE 75; RESP 17; O2SAT 100
== END 2023-04-03 20:11 | disposition home or self-care (01) ==
PROVIDERS: Registered Nurse Emergency; Emergency Provider Emergency Medicine
DX: N39.0 Urinary tract infection, site not specified (principal); R39.15 Urgency of urination; Z20.2 Contact with and (suspected) exposure to infections with a predominantly sexual mode of transmission; Z79.899 Other long term (current) drug therapy
CPT/HCPCS: 81001; 81025; 87086; 87088; 87186; 96372; 99284; J0696

== ENCOUNTER 2023-05-31 13:44 | Emergency (ER) | payer MEDICAID, SELFPAY ==
--- NOTE | 2023-05-31 15:02 | ED_ITS ---
HPI - General Adult General Chief complaint: Extremity Injury, Upper Stated complaint: L shoulder pain/neck pain Source: patient Mode of arrival: ambulatory Limitations: no limitations History of Present Illness HPI narrative: Patient is a 32-year-old female presenting to the ED with complaint of left shoulder and left lateral neck pain which began today. Has ongoing history of L shoulder pain for over a year. Denies any new falls or other trauma. Did not follow up with orthopedics as recommended at previous ED visit. Today took previously prescribed ibuprofen and cyclobenzaprine with moderate relief. Co mplains of intermittent tingling down arm to palm of left hand. MD complaint: left shoulder pain Onset (ago): hour(s) Location: left and upper extremity Radiation: non-radiation Severity: severe Severity scale (1-10): >10 Quality: burning and aching Pain Consistency: constant Relieving factors: medication Exacerbating factors: movement Associated symptoms: denies other symptoms Treatments prior to arrival: NSAID and other Related Data Home Medications Medication Instructions Recorded Confirmed etonogestrel 68 mg subdermal subdermal 11/21/22 implant (Nexplanon) Previous Rx's Medication Instructions Recorded cyclobenzaprine 5 mg tablet 5 mg PO TID PRN muscle spasm #15 01/27/23 tabs ibuprofen 600 mg tablet 600 mg PO Q6H PRN pain #45 tabs 01/27/23 doxycycline hyclate 100 mg tablet 100 mg PO BID 7 days #14 tabs 04/03/23 nitrofurantoin 100 mg PO BID 5 days #10 caps 04/08/23 monohydrate/macrocrystals 100 mg capsule (Macrobid) cyclobenzaprine 5 mg tablet 5 mg PO TID PRN muscle spasm #12 05/31/23 tabs prednisone 20 mg tablet 40 mg (2 x 20 mg) PO DAILY #10 tabs 05/31/23 Allergies Allergy/AdvReac Type Severity Reaction Status Date / Time kiwi [KIWI] Allergy Unknown UNKNOWN Verified 05/31/23 15:03 oregano [OREGANO] Allergy Unknown UNKNOWN Verified 05/31/23 15:03 Review of Systems Review of Systems: As per HPI. Yes all other systems are reviewed and are negative Constitutional: Constitutional: Reports as per HPI [facility] Past Medical History Medical History Vaginal irritation Encounter for surveillance of Nexplanon subdermal contraceptive Encounter for well woman exam Insertion of Nexplanon Asthma Social History Social History Household Members Other:: partner, MGM, and her 4 children Alcohol intake: current Alcohol intake frequency: does not drink Patient Tobacco Use Status: Former Tobacco user Cigarettes Per Day: 3 Advance Directives: No Advance Directives Information Provided: No Current occupational status: employed 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 Blood pressure normal. Heart rate normal. Respiratory rate normal. Temperature normal. Oxygen saturation normal. Const General: cooperative, healthy appearing and no acute distress Orientation/consciousness: oriented to person, oriented to place, oriented to time and patient oriented x3 Limitations: no limitations HENMT Head: Yes normocephalic and Yes atraumatic Ears: external ears normal General nose exam: Normal external nose present Face and sinus: Yes face symmetric Mouth: oropharynx normal and moist mucous membranes Throat: Yes uvula midline Eyes Pupils: Equal, round and reactive pupils present Neck Neck: Yes normal visual inspection and Yes supple Resp Effort & Inspection: normal respiratory effort and able to speak in complete sentences Auscultation: clear to auscultation bilaterally Cardio Rate: regular rate Rhythm: regular rhythm Heart sounds: S1 normal heart sound present and S2 normal heart sound present GI Palpation (GI): Soft to palpation and nontender Auscultation: normoactive bowel sounds General: Yes no CVA tenderness Back/Spine/Pelvis Back: no CVA tenderness Skin General skin exam: elasticity normal and turgor normal Neuro General: oriented to person, oriented to place, oriented to time, patient oriented x3, moves all extremities, Normal light touch and pain sensation, no focal motor deficits, CN's II-XI intact bilaterally and deep tendon reflexes 2+ bilaterally Cranial nerves: Yes Equal, round and reactive pupils present Cognition (Neuro): normal cognition Motor exam (neuro): 5/5 motor strength present throughout, Normal motor muscle tone present throughout and Motor abnormalities not present Extrem General: Yes full ROM, Yes no pedal edema and Yes no calf tenderness Left upper extremity: shoulder/upper arm Details: inspection abnormal, tenderness (over trapezius) and normal ROM; no ecchymosis, no deformity and no unsual warmth Psych Mental Status: mental status grossly normal Affect: normal affect Thought process: Normal thought process present Medical Decision Making Medical Decision Making [facility] Narrative: Patient is a 32-year-old female presenting to the ED with complaint of left shoulder and left lateral neck pain which began today. On exam patient is awake, A+Ox3, VS WNL, afebrile, normal neurological exam without focal deficits, physical exam findings as above. Given reported symptoms and physical exam findings, initial differential includes left shoulder strain, rotator cuff injury/strain. Unlikely fracture or dislocation. Do not feel imaging is indicated at this time as patient had negative left shoulder x-ray in December of this year and denies any subsequent trauma. Discussed with patient that she will need to follow-up with orthopedics for further evaluation and management of her symptoms. Will prescribe short course of prednisone to decrease inflammation as well as cyclobenzaprine. Return precautions discussed. Patient verbalized understanding of and agreement with plan. Differential Diagnosis Differential Diagnoses: The differential diagnosis associated with the presentation includes As per MDM. External Record Review External record reviewed: Inpatient record, Office record and Outpatient record Prescription Management I considered prescription management with: Other Discharge Plan Discharge Clinical Impression: Left shoulder pain Patient Disposition: Home, Self-Care Instructions: Shoulder Pain (ED) Additional Instructions: You have been evaluated in the emergency department today for left shoulder pain. Your evaluation did not find evidence of medical conditions requiring emergent intervention at this time. It is important that you follow up with orthopedics for further evaluation and management of your symptoms. Please call their office to schedule an appointment. You are being prescribed cyclobenzaprine as needed for muscle spasms as well as a short course of steroids to decrease inflammation. We recommend you take 600mg ibuprofen every 6 hours or 650mg Tylenol every 6 hours as needed for pain. If needed you can alternate these medications as they take 1 medication every 3 hours. For instance at noon take ibuprofen, then at 3:00 p.m. take Tylenol, then at 6:00 p.m. take ibuprofen. Please schedule an appointment for follow-up with your primary care provider this week. Return to the emergency department if you experience worsening pain, numbness, tingling, change of color in your arm or hand, or any other concerning symptoms. Prescriptions: New prednisone 20 mg tablet 40 mg PO DAILY Qty: 10 0RF cyclobenzaprine 5 mg tablet 5 mg PO TID PRN (Reason: muscle spasm) Qty: 12 0RF No Action doxycycline hyclate 100 mg tablet 100 mg PO BID 7 Days Qty: 14 0RF nitrofurantoin monohyd/m-cryst [Macrobid] 100 mg capsule 100 mg PO BID 5 Days Qty: 10 0RF Rx Instructions: must administer with a meal/food ibuprofen 600 mg tablet 600 mg PO Q6H PRN (Reason: pain) Qty: 45 0RF cyclobenzaprine 5 mg tablet 5 mg PO TID PRN (Reason: muscle spasm) Qty: 15 0RF Nexplanon 68 mg implant subdermal Referrals: [facility] [place] [facility] [Provider Group]
[2023-05-31 15:04] VITALS: BP 115/66; PULSE 69; RESP 16; TEMP 36.2; O2SAT 100; BMI 33.6
== END 2023-05-31 15:37 | disposition home or self-care (01) ==
PROVIDERS: Emergency Provider Emergency Medicine
DX: M25.512 Pain in left shoulder (principal); M54.2 Cervicalgia
CPT/HCPCS: 99282; 99283